=== PATIENT | male | born 1985 | race African-American/Black ===

== ENCOUNTER 2017-06-16 19:34 | Emergency (ER) | payer OTHER ==
[~2017-06-16] VITALS: Ht 172.7 cm; Wt 63.5 kg
[2017-06-16] MEDS ORDERED: NOHOMEMEDICATIONS (20:02)
[2017-06-16] MEDS ORDERED: NAPROSYN500 MG PO (20:28)
[2017-06-16 21:02] VITALS: BP 109/84
== END 2017-06-16 21:03 | disposition home or self-care (01) ==
LOC: ER 19:34
DX: S50.11XA Contusion of right forearm, initial encounter (principal); W51.XXXA Accidental striking against or bumped into by another person, initial encounter; Y93.67 Activity, basketball; Y92.89 Other specified places as the place of occurrence of the external cause; Y99.8 Other external cause status

== ENCOUNTER 2018-08-18 19:16 | Emergency (ER) | payer OTHER ==
[~2018-08-18] VITALS: Ht 175.3 cm; Wt 63.5 kg
[~2018-08-18 19:16] MED LIST: NAPROSYN500 MG PO; NOHOMEMEDICATIONS
[2018-08-18 19:17] VITALS: BP 120/79
[2018-08-18] MEDS ORDERED: NORCO 5-325 TA1 EAC1 PO (19:19)
[2018-08-18] MEDS ORDERED: IBUPROFEN 600600 M1 PO (20:59)
== END 2018-08-18 21:18 | disposition home or self-care (01) ==
LOC: ER 19:16
DX: S63.696A Other sprain of right little finger, initial encounter (principal); S93.501A Unspecified sprain of right great toe, initial encounter; V89.2XXA Person injured in unspecified motor-vehicle accident, traffic, initial encounter; Y92.89 Other specified places as the place of occurrence of the external cause; Y93.89 Activity, other specified; Y99.8 Other external cause status